=== PATIENT | female | born 1980 | race Caucasian/White ===

== ENCOUNTER 2022-09-10 19:55 | Observation (INO) ==
[2022-09-10] MEDS ORDERED: cefTRIAXone SODIUM 2,000 MG/70 ML BAG IV STA (20:12)
[2022-09-10] MEDS ORDERED: SODIUM CHLORIDE 0.9% 1000ML 1,000 ML IV ONE (20:16)
--- NOTE | 2022-09-10 20:25 | Emergency Department Note ---
History of Present Illness General Chief complaint: Edema To Extremity Stated complaint: SWELLING RIGHT THUMB, URGENT CARE REFERRED Time Seen by Provider: 09/10/22 20:02 Source: patient, RN notes reviewed and old records reviewed Mode of arrival: ambulatory Limitations: no limitations History of Present Illness Maximum Pain Intensity: 8 This patient is a 42-year-old previously healthy right-handed female who comes in after having pain in her right thumb that started this afternoon she is seen in urgent care and referred up here she said since this afternoon she has had red streaks going up her arm all the way to her armpit she has had chills and nausea. She denies any injuries. She has no pets and there is is been no exposure to cats or dogs. 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 No chest pain or shortness of breath. She thinks it started in the pad of the thumb but the thumb is pretty swollen diffusely including the IP joint Home Medications Medication Instructions Recorded Confirmed Type levothyroxine 75 mcg tablet 75 mcg PO DAILY 09/10/22 09/10/22 History (Synthroid) norethindrone 1 mg-ethinyl 1 tab PO DAILY 09/10/22 09/10/22 History estradiol 20 mcg (21)-iron 75 mg (7) tablet (09/09 (28)) Allergies Allergy/AdvReac Type Severity Reaction Status Date / Time No Known Allergies Allergy Verified 09/10/22 20:23 Past Med/Surg History Family History Aunt Breast cancer Denies family history of Ovarian cancer Prostate cancer Myocardial infarction Colorectal cancer Social History Smoking Status: Never smoker Second Hand Exposure: Yes; Hx Alcohol Use: Yes Hx Substance Use: No Preferred Language: Upper Sorbian marital status: Current Living Situation: Spouse How many Children do You have: 2 Feels Safe at Home: Yes Immunizations: Past medical historyhypothyroidism. Denies diabetes denies any inflammatory disease or arthritis. Allergiesdenies any medication allergies Social history she is and lives locally she is a professor in [employer]. Denies tobacco use. Drinks socially with a glass of wine in the evening. Denies drug use. Review of Systems A total of 10 systems reviewed and were otherwise negative Physical Exam Vital Signs Vital Signs - 24 hr 09/10/22 19:59 Temperature 37.7 C H Temperature Source Temporal Artery Scan Pulse Rate 92 H Respiratory Rate 16 Respiratory Depth Normal Blood Pressure 115/72 Blood Pressure Mean 86 Pulse Oximetry 100 Oxygen Delivery Method Room Air Sepsis Recent Fever Within 48 Hours No Sepsis New/Unexplained Change in Mental Status N/A Sepsis Action Taken by Nursing No Action Required General: Well developed well nourished [id number] slender middle-aged female who appears in no acute distress, breathing comfortably on room air. Normal speech HEENT: Normal cephalic atraumatic. Pupils are equal round and reactive to light. Extraocular movements are intact. Oropharynx is pink with moist mucous membranes. No swelling of the mouth lips or tongue. Neck: Supple with a midline trachea. No meningeal signs or stiffness, no JVD or bruits. No Stridor. Chest: Clear to auscultation bilaterally. No wheezes or rhonchi. No increased work of breathing. Heart: Regular rate and rhythm without murmurs or gallops. Abdomen: Soft nontender, nondistended without rebound guarding or rigidity. Extremities: There is moderate swelling and redness throughout her right thumb. She seems tender diffusely including the thumb pad but the IP joint area appears swollen as well. There are red streaks going all way up to her armpit. She has good capillary refill. There is no laceration or obvious break in the skin seen. She is will flex and extend but has a lot of pain when doing so. Spine/Back. Non tender to palpation. No CVA tenderness Skin: Good turgor without rashes. Neurologic exam: Cranial nerves two through 12 are intact. Motor and sensation are intact and symmetrical throughout. Course Administered Medications Discontinued Medications Ceftriaxone Sodium (Rocephin) 2,000 mg in 70 mls @ 140 mls/hr IV NOW STA Stop: 09/10/22 20:41 Last Infusion: 09/10/22 21:15 Dose: 0 mls/hr Documented By: Admin: 09/10/22 20:43 Dose: 140 mls/hr Documented By: [id number] Sodium Chloride (Nss 1000ml) 1,000 mls @ 999 mls/hr IV .Q1H1M ONE Stop: 09/10/22 21:16 Last Admin: 09/10/22 20:41 Dose: 999 mls/hr Documented By: [id number] Ketorolac Tromethamine (Ketorolac Tromethamine 15 Mg/Ml Vial) 10 mg IV NOW ONE Stop: 09/10/22 20:46 Last Admin: 09/10/22 20:49 Dose: 10 mg Documented By: JM Medical Decision Making Differential Diagnosis Cellulitis, lymphangitis, abscess, felon, infected joint, trauma, sepsis, electrolyte or metabolic Medical Records Attestation: I reviewed the patient's medical records. Home Medications Current Medication List: was personally reviewed by me Laboratory Data Attestation: I reviewed the patient's lab results. Result diagrams: 09/10/22 20:33 09/10/22 20:33 Lab Results 09/10/22 09/10/22 09/10/22 Range/Units 20:33 20:33 20:33 WBC 10.88 H (4.8-10.8) K/ul RBC 3.86 L (3.93-5.22) M/uL Hgb 13.2 (12.0-16.0) g/dl Hct 36.7 (34.1-44.9) % MCV 95.1 (80.0-100.0) fL MCH 34.2 H (25.0-34.0) pg MCHC 36.0 (32.0-36.0) g/dL RDW Std Deviation 39.7 (36.4-46.3) fL RDW Coeff of Rosa 11.5 (11.5-14.5) % Plt Count 344 (130-400) K/uL MPV 8.5 L (9.4-12.3) fL Immature Gran % (Auto) 0.4 % Neut % (Auto) 91.0 % Lymph % (Auto) 2.6 % Hinds % (Auto) 5.7 % Eos % (Auto) 0.0 % Baso % (Auto) 0.3 % Neut # (Auto) 9.91 H (1.4-6.5) K/uL Lymph # (Auto) 0.28 L (1.2-3.4) K/uL Hinds # (Auto) 0.62 (0.24-0.82) K/uL Eos # (Auto) 0.00 (0-0.50) K/uL Baso # (Auto) 0.03 (0-0.2) K/uL Immature Gran # (Auto) 0.04 H (0.00-0.02) K/uL Sodium 131 L (136-145) mmol/L Potassium 3.3 L (3.5-5.1) mmol/L Chloride 95 L (98-107) mmol/L Carbon Dioxide 29 (21-32) mmol/L Anion Gap 7 (3-11) BUN 6 (6-23) mg/dl Creatinine 0.61 (0.6-1.2) mg/dl Est Cr Clr Drug Dosing 78.3 ml/min Est GFR ( Amer) 128.7 ml/min Est GFR (Non-Af Amer) 111.0 ml/min BUN/Creatinine Ratio 9.8 L (10-20) Glucose 104 H (70-99(Fasting)) mg/dl Lactate 1.0 (0.4-2.0) mmol/L Calcium 9.5 (8.5-10.1) mg/dl Magnesium 2.1 (1.7-2.4) mg/dl Total Bilirubin 0.5 (0.2-1.0) mg/dl Direct Bilirubin 0.1 (0-0.2) mg/dl AST 26 (13-39) U/L ALT 15 (7-52) U/L Alkaline Phosphatase 44 (34-104) U/L Troponin I High Sens 3.8 (0-14) pg/ml C-Reactive Protein < 0.50 (0-0.5) mg/dl Total Protein 7.2 (6.0-8.3) gm/dl Albumin 4.6 (3.4-5.0) gm/dl Procalcitonin (0-0.5) ng/ml HCG, Qual (Negative) 09/10/22 Range/Units 20:33 WBC (4.8-10.8) K/ul RBC (3.93-5.22) M/uL Hgb (12.0-16.0) g/dl Hct (34.1-44.9) % MCV (80.0-100.0) fL MCH (25.0-34.0) pg MCHC (32.0-36.0) g/dL RDW Std Deviation (36.4-46.3) fL RDW Coeff of Rosa (11.5-14.5) % Plt Count (130-400) K/uL MPV (9.4-12.3) fL Immature Gran % (Auto) % Neut % (Auto) % Lymph % (Auto) % Hinds % (Auto) % Eos % (Auto) % Baso % (Auto) % Neut # (Auto) (1.4-6.5) K/uL Lymph # (Auto) (1.2-3.4) K/uL Hinds # (Auto) (0.24-0.82) K/uL Eos # (Auto) (0-0.50) K/uL Baso # (Auto) (0-0.2) K/uL Immature Gran # (Auto) (0.00-0.02) K/uL Sodium (136-145) mmol/L Potassium (3.5-5.1) mmol/L Chloride (98-107) mmol/L Carbon Dioxide (21-32) mmol/L Anion Gap (3-11) BUN (6-23) mg/dl Creatinine (0.6-1.2) mg/dl Est Cr Clr Drug Dosing ml/min Est GFR ( Amer) ml/min Est GFR (Non-Af Amer) ml/min BUN/Creatinine Ratio (10-20) Glucose (70-99(Fasting)) mg/dl Lactate (0.4-2.0) mmol/L Calcium (8.5-10.1) mg/dl Magnesium (1.7-2.4) mg/dl Total Bilirubin (0.2-1.0) mg/dl Direct Bilirubin (0-0.2) mg/dl AST (13-39) U/L ALT (7-52) U/L Alkaline Phosphatase (34-104) U/L Troponin I High Sens (0-14) pg/ml C-Reactive Protein (0-0.5) mg/dl Total Protein (6.0-8.3) gm/dl Albumin (3.4-5.0) gm/dl Procalcitonin < 0.05 (0-0.5) ng/ml HCG, Qual Negative (Negative) Imaging Data Attestation: I personally reviewed and interpreted this imaging study as follows: My Impression: Right thumb x-rayno fracture or dislocation or any bony abnormality seen. Radiologist's Impression: Finger X-Ray 09/10/22 20:12 XR finger(s) RT min 2V CLINICAL HISTORY: right thumb pain and swelling TECHNIQUE: 3 views of the right first digit were obtained. Comparison: None available at the time of this dictation. FINDINGS: There is no evidence of an acute fracture. Joint spaces are well-preserved. Soft tissue swelling is seen about the digit. IMPRESSION: Soft tissue swelling is seen about the first digit without evidence of acute fracture. ACT 112: Negative or not required by law. Electronically signed by: Vimal Morgan M.D. 09/10/2022 8:54 PM ECG Data Attestation: I personally reviewed and interpreted this ECG as follows: Indication: + other (Sepsis work-up) Rate (beats per minute): 91 Rhythm: + normal sinus ECG Intervals/blocks: + Normal QRS, + Normal QT and + Normal CA ECG Snook: + Normal ECG ST segments: + Normal ST segments ECG Findings: no PACs or no PVCs Comparison ECG Date: no prior available MDM Narrative This patient comes in with pain and swelling in her right thumb. She is tender on the thumb pad but also diffusely and on the dorsal aspect of her thumb as well along the joint. There are also red streaks consistent with lymphangitis. She has had some chills and has a temperature 37.7, I am concerned about sepsis. I did order a full sepsis type work-up IV access established in the opposite arm blood cultures were obtained. She was initially given empiric Rocephin 2 g IV as well as 1 L normal saline bolus IV. Multiple blood testing was obtained. She was also given Toradol 10 mg IV for pain. EKG does not suggest any ischemic changes and she is nontachycardic. No arrhythmia. She seems more comfortable with the Toradol. I did order additional 500 cc normal saline IV bolus which would put her at more than 30 cc/kg IV. White count is mildly elevated 10 however lactic acid procalcitonin and CRP are within normal limits. I do think she needs to be admitted for IV antibiotics and observation given her lymphangitis. She may ultimately need drainage or surgery particular even does not get better. Its possible she could have a Decker as of the pad of the f vandana is swollen but also of the dorsal aspect near the joint and it could be more of a septic joint or more of just a cellulitis. I have consulted the [facility] hospitalist group to see her for these measures and I discussed the case with Dr. Morales as well as the resident. I did also discussed the case with the on-call orthopedist Dr. Cox. He agrees with IV antibiotics and observation in the hospital. He will be seeing her in the hospital as well. Impression & Plan Lymphangitis, Cellulitis, Lab test negative for COVID-19 virus, Not currently , Pain of left thumb Discharge Plan Visit Data Chief Complaint: Edema To Extremity Stated Complaint: SWELLING RIGHT THUMB, URGENT CARE REFERRED ED Provider: Ariel Lowery Discharge Problem: Lymphangitis, Cellulitis, Lab test negative for COVID-19 virus, Not currently , Pain of left thumb Forms Stand Alone Forms: My [facility] Prescriptions Prescriptions: No Action norethindrone-e.estradiol-iron [09/09 (28)] 1 mg-20 mcg (21)/75 mg (7) tablet 1 tab PO DAILY levothyroxine [Synthroid] 75 mcg tablet 75 mcg PO DAILY Referrals Referrals: Geneva Sanchez CRNP [Primary Care Provider] -
[2022-09-10] MEDS ORDERED: KETOROLAC TROMETHAMINE 15 MG/ML VIAL IV ONE ×2 (20:45→22:21)
--- NOTE | 2022-09-10 20:56 | XRay Report ---
XR finger(s) RT min 2V CLINICAL HISTORY: right thumb pain and swelling TECHNIQUE: 3 views of the right first digit were obtained. Comparison: None available at the time of this dictation. FINDINGS: There is no evidence of an acute fracture. Joint spaces are well-preserved. Soft tissue swelling is s een about the digit. IMPRESSION: Soft tissue swelling is seen about the first digit without evidence of acute fracture. ACT 112: Negative or not required by law. Electronically signed by: Vimal Morgan M.D. 09/10/2022 8:54 PM
[2022-09-10 21:06] LABS: Pregnancy Test, Serum Negative (Negative)
[2022-09-10 21:17] LABS: Alanine Aminotransferase 15 U/L (7-52); Albumin Level 4.6 gm/dl (3.4-5.0); Alkaline Phosphatase 44 U/L (34-104); Anion Gap 7 (3-11); Aspartate Aminotransferase 26 U/L (13-39); BUN Creatinine Ratio 9.8 (10-20); Bilirubin Direct 0.1 mg/dl (0-0.2); Bilirubin,Total 0.5 mg/dl (0.2-1.0); Blood Urea Nitrogen 6 mg/dl (6-23); C Reactive Protein < 0.50 mg/dl (0-0.5); Calcium 9.5 mg/dl (8.5-10.1); Carbon Dioxide 29 mmol/L (21-32); Chloride 95 mmol/L (98-107); Creatinine Clr Calc Pharmacy 78.3 ml/min; Est GFR (African American) 128.7 ml/min; Glucose 104 mg/dl (70-99(Fasting)); Magnesium 2.1 mg/dl (1.7-2.4); Potassium 3.3 mmol/L (3.5-5.1); Sodium 131 mmol/L (136-145); Total Protein 7.2 gm/dl (6.0-8.3)
[2022-09-10 21:18] LABS: Hematocrit (blood only) 36.7 % (34.1-44.9); Hemoglobin 13.2 g/dl (12.0-16.0); Mean Corpuscular Hemoglobin 34.2 pg (25.0-34.0); Mean Corpuscular Volume 95.1 fL (80.0-100.0); Mean Platelet Volume 8.5 fL (9.4-12.3); Platelet Count 344 K/uL (130-400); RDW Coefficient of Variation 11.5 % (11.5-14.5); RDW Standard Deviation 39.7 fL (36.4-46.3); Red Blood Count 3.86 M/uL (3.93-5.22); White Blood Count 10.88 K/ul (4.8-10.8)
[2022-09-10 21:19] LABS: Troponin I High Sensitivity 3.8 pg/ml (0-14)
[2022-09-10 21:24] LABS: Procalcitonin < 0.05 ng/ml (0-0.5)
[2022-09-10] MEDS ORDERED: SODIUM CHLORIDE 0.9% 500 ML IV ONE (21:31)
--- NOTE | 2022-09-10 21:51 | History & Physical Report ---
Date of Service September 10, 2022 Assessment & Plan (1) Cellulitis: Plan: 42-year-old woman with history of hypothyroidism on levothyroxine who presents with acute onset pain and swelling in her right thumb, with erythema and pain across right arm. Now admitted for IV antibiotics. Cellulitis -WBC 10.88, afebrile, soft tissue swelling noted on XR, no evidence of purulence or abscess. -Now s/p IV ceftriaxone x2 g, 2L IVF bolus in ED. * Admit to [facility] * Continue IV abx: Ceftriaxone 2 g daily x5 days total (08/25). May convert to p.o. in event of clinical improvement. * IV Toradol 15 mg every 6 hours as needed for pain. May convert to p.o. if patient clinically improves. Hypothyroidism * Levothyroxine 75 mcg p.o. daily Code: Full code Dispo: Med-Surg FEN/GI: NPO DVT Prophylaxis: PT/OT: No Consults: Orthopedics History of Present Illness Primary Care Provider: SRINIVAS Fofana Krista is a 42-year-old woman with history of hypothyroidism on levothyroxine who presents to the ED today with acute progressive pain and swelling in her right thumb and redness and swelling across her forearm and arm that began today at noon. Symptoms later included shaking chills and nausea, at which point she presented to [facility]. She denied recent injuries, has no pets no recent exposure to pets. She has a history of cellulitis in her leg once. In the ED, vitals were within normal limits (37.7 C, HR-92). Labs were notable for a slightly elevated WBC of 10.88, Na of 131, K+ 3.3. X-ray of the finger showed soft tissue swelling in the thumb but no fracture or other abnormalities. She received a dose of IV ceftriaxone 2 g x 1, IV NSS bolus x2 L, and IV Toradol 10 mg x 1 for pain. On admission, she denies recent/frequent outdoor exposure, insect bites, recent cuts or scrapes while handling food. Her nausea is improved, though she continues to admit to chills. Right thumb pain is slightly improved. Allergies Allergy/AdvReac Type Severity Reaction Status Date / Time No Known Allergies Allergy Verified 09/10/22 20:23 Home Medications Medication Instructions Recorded Confirmed Type levothyroxine 75 mcg tablet 75 mcg PO DAILY 09/10/22 09/10/22 History (Synthroid) norethindrone 1 mg-ethinyl 1 tab PO DAILY 09/10/22 09/10/22 History estradiol 20 mcg (21)-iron 75 mg (7) tablet (09/09 (28)) Past Med/Surg History Medical History (Updated 09/11/22 @ 09:06 by Eleazar Cox MD) Cellulitis Family History Aunt Breast cancer Denies family history of Ovarian cancer Prostate cancer Myocardial infarction Colorectal cancer Social History Smoking Status: Never smoker Second Hand Exposure: Yes; Hx Alcohol Use: Yes Alcohol type: wine Hx Substance Use: No Preferred Language: Bahamian Communication Ability: Effective Radio Time Salesperson Required: No Beliefs That Will Affect Care: None marital status: Current Living Situation: Spouse and Family Current Living Situation Comment: Lives at home with and two kids How many Children do You have: 2 Other Information That Helps Us Care for You: No Feels Safe at Home: Yes Safety Concerns: Feels Safe At This Time Assistive Devices: None Review of Systems Review of Systems: All systems reviewed & are unremarkable except as noted in HPI & below Physical Exam Physical Exam: General: Fatigued appearing woman in no acute distress HEENT: PERRLA. Normal conjunctiva, anicteric sclera. Oropharynx normal. Respiratory: Normal respiratory effort, CTABL. Cardiovascular: RRR without murmurs, gallops, or rubs. No edema. MSK/Skin: Right thumb swelling without purulence or fluctuance. Unable to passively flex at MCP and IP joints due to pain. Erythematous streak from flexor surface of the right forearm across the cubital fossa, to the upper arm. Mildly tender to palpation across area of erythema. Full ROM at shoulder and wrist on the right. GI: Soft abdomen with normal bowel sounds heard on auscultation. Nontender x4 quadrants Neuro: Alert and oriented x3. Results & Data Results & Data ([facility]) Vital Signs (Past 12 Hours) Vital Signs Temp Pulse Resp BP Pulse Ox O2 Del Method 09/10/22 19:59 37.7 C H 92 H 16 115/72 100 Room Air Supervising Physician Co-Signing Physician Notes Attending addendum: I have physically seen this patient, have supervised the medical residents activities, and agree with the H&P unless as otherwise noted. Assessment and Plan: Right thumb cellulitis/a sending lymphangitis- Ceftriaxone 2 g IV daily Patient also received a total of 1500 mils from the ED Check MRSA swab Toradol 15 mg IV every 6 hours as needed moderate pain Acetaminophen 650 mg p.o. every 6 hours as needed mild pain or fever Question of secondary to underlying Raynaud's and localized trauma Orthopedic consult called in by ED Raynaud's symptoms- Secondary work-up ordered Hypothyroidism- Continue levothyroxine 75 mcg daily Remaining orders and notations as noted Resident Activity Tracking Resident Involvement: Resident Care Provided Care Provided: Adult Hospital Medicine
[2022-09-10 21:56] LABS: Basophils # (auto) 0.03 K/uL (0-0.2); Basophils % (auto) 0.3 %; Immature Granulocytes # (auto) 0.04 K/uL (0.00-0.02); Immature Granulocytes % (auto) 0.4 %; Lymphocytes # (auto) 0.28 K/uL (1.2-3.4); Lymphocytes % (auto) 2.6 %; Monocytes # (auto) 0.62 K/uL (0.24-0.82); Monocytes % (auto) 5.7 %; Neutrophils # (auto) 9.91 K/uL (1.4-6.5)
[2022-09-11] MEDS ORDERED: ONDANSETRON INJ 2 MG/ML 2 ML VIAL IV PRN (00:03)
[2022-09-11] MEDS ORDERED: ACETAMINOPHEN 500 MG TAB PO PRN (00:03)
[2022-09-11] MEDS ORDERED: LACTATED RINGER'S 1,000 ML IV ONE (00:28)
[2022-09-11 02:27] LABS: Appearance Urine Clear (Clear); Bacteria Urine Automated Negative (Negative); Bilirubin Urine Negative (Negative); Blood Urine 1+ (Negative); Cast Urine Automated 0 /lpf (0-5); Color Urine Yellow; Epithelial Cell Urine Auto 0-5 /lpf (0-5); Glucose Urine UA Negative (Negative); Ketones Urine Negative (Negative); Leukocyte Esterase Urine Negative (Negative); Nitrite Urine Negative (Negative); Protein Urine Negative (Negative); Specific Gravity Urine 1.004 (1.000-1.030); Urobilinogen Urine Negative (Negative); WBC Urine Automated 0 /hpf (0-5); pH Urine 7.5 (4.5-7.5)
[2022-09-11] MEDS: KETOROLAC TROMETHAMINE 15 MG/ML VIAL IV PRN ×3 (02:51→17:28)
[2022-09-11] MEDS: LEVOTHYROXINE SODIUM 75 MCG TABLET PO SCH (06:18)
[2022-09-11 07:05] LABS: Basophils # (auto) 0.05 K/uL (0-0.2); Basophils % (auto) 0.4 %; Eosinophils # (auto) 0.01 K/uL (0-0.50); Eosinophils % (auto) 0.1 %; Hematocrit (blood only) 31.5 % (34.1-44.9); Hemoglobin 11.5 g/dl (12.0-16.0); Immature Granulocytes # (auto) 0.31 K/uL (0.00-0.02); Immature Granulocytes % (auto) 2.7 %; Lymphocytes # (auto) 0.43 K/uL (1.2-3.4); Lymphocytes % (auto) 3.7 %; Mean Corpuscular Hemoglobin 34.5 pg (25.0-34.0); Mean Corpuscular Hgb Conc 36.5 g/dL (32.0-36.0); Mean Corpuscular Volume 94.6 fL (80.0-100.0); Mean Platelet Volume 8.3 fL (9.4-12.3); Monocytes # (auto) 0.59 K/uL (0.24-0.82); Monocytes % (auto) 5.1 %; Neutrophils # (auto) 10.24 K/uL (1.4-6.5); Platelet Count 269 K/uL (130-400); RDW Coefficient of Variation 11.7 % (11.5-14.5); RDW Standard Deviation 40.6 fL (36.4-46.3); Red Blood Count 3.33 M/uL (3.93-5.22); White Blood Count 11.63 K/ul (4.8-10.8)
[2022-09-11 07:35] LABS: Magnesium 1.9 mg/dl (1.7-2.4); Potassium 3.2 mmol/L (3.5-5.1)
--- NOTE | 2022-09-11 07:38 | Hospitalist Progress Note ---
Date of Service September 11, 2022 Assessment & Plan (1) Cellulitis: Plan: 42-year-old woman with history of hypothyroidism on levothyroxine who presents with acute onset pain and swelling in her right thumb, with erythema and pain across right arm. Now admitted for IV antibiotics. Cellulitis -WBC 11.63, afebrile, soft tissue swelling noted on XR, no evidence of purulence or abscess. -Now s/p IV ceftriaxone x2 g, 2L IVF bolus in ED. * Will transition antibiotics to cefazolin * MRI of hand with small less than 1 cm collection questionable for abscess * Orthopedics consulted; discussed with them and will continue with antibiotic treatment. No plan for procedure today. NPO at midnight for re-evaluation in morning. Elevation of RUE. * IV Toradol 15 mg every 6 hours as needed for pain. Hypothyroidism * Levothyroxine 75 mcg p.o. daily Code: Full code FEN/GI: NPO at midnight DVT Prophylaxis: PT/OT: No Consults: Orthopedics Admission and Anticipated Discharge Date Admission Date: September 10, 2022 Supervising Physician Co-Signing Physician Notes I personally examined the patient and verified all whelan points of history and exam, discussed case, and agree with decision making with Dr Villatoro. Hand still hurts a good bit, but feels like it is probably getting a little bit better. Pad of thumb is the most tender. Has a little bit of a headache as well. Notes that she is quite concerned about any unnecessary n.p.o. status given her underweight problemsafter we have a careful and detailed discussion about risk/benefit of n.p.o. after midnight for reevaluation in the morning, and the fact that breakfast would probably then delay any possible surgical drainage (if needed) by a day, but that it is not likely that there will need to be surgical drainageand if so there does not appear to be an emergency pace to itafter weighing all of the risk/benefit, she would prefer to not be n.p.o. until/unless it is clear that a surgery is necessary. Vitals noted, in general she is awake and alert pleasant no distress. HEENT normocephalic atraumatic mucous membranes moist. Osteopathic/musculoskeletal shows a right-sided suboccipitals to be high tone tender decreased range of motioninhibitory pressureimproved, patient tolerated well and noted some improvement in headache. Her right hand is quite swollen, her thumb is a little bit blistered and bruised in addition to erythema, she also has erythema all over the entirety of her hand, predominantly on the extensor surface. The flexor surface of her thumb has a small area of appearance of fluctuance Hand cellulitis, lymphangitis, small abscessin discussion between orthopedics and resident physician, unlikely to need drained. Appreciate orthopedics consideration of having her n.p.o. after midnight until a.m. exam in case drainage is necessary, but patient harbors understandably very significant concerns about being n.p.o. at all if not necessary given her underweight status, and we had a detailed discussion of risk/benefit of the n.p.o. after midnight pending further evaluationshe understands that if it does require surgical drainage that will effectively add more time to her hospital stay, but we also discussed that with the way her hand looks, she is likely to be in the hospital on IV antibiotics at least a few days anyway. Between the fact that she was not extremely ill from a septic shock/severe sepsis standpoint on admission, and her MRSA nares being negativeMSSA coverage with cefazolin likely to be in the range of the best choicecontinue this. Underweight/calorie malnutritionsee above discussion, continue p.o. intake for now. DVT prophylaxisambulation otherwise as above Subjective Kaitlynn is doing well this morning. She state her pain has improved. Has noticed minimal improvement in redness and swelling. Denies fever/chills. Eating and drinking well. Review of Systems Review of Systems: As per above Physical Exam Physical Exam: Constitutional: well-appearing, no acute distress HEENT: NCAT, no conjunctival injection CV: regular rhythm, no murmur appreciated, extremities well-perfused, no LE edema Resp: CTABL, no wheezes/rales/rhonchi appreciated, no increased work of breathing GI: soft, nondistended, nontender, BS normoactive MSK: Right thumb swelling without purulence, fluctuance, break in the skin. Erythematous streak from flexor surface of the right forearm across the cubital fossa, to the upper arm. Mildly tender to palpation across area of erythema. Full ROM at shoulder and wrist on the right. Skin: warm, dry, no rash appreciated Neuro: alert, oriented, no focal neurologic deficit appreciated Results & Data Results & Data ([facility]) Vital Signs (Past 12 Hours) Vital Signs Temp Pulse Pulse Pulse Resp BP BP 09/11/22 00:00 38 C H 86 16 125/82 09/11/22 00:39 37.6 C H 09/11/22 00:10 38 C H 86 16 125/82 09/10/22 23:39 87 16 120/72 09/10/22 23:34 87 16 120/72 09/10/22 23:12 91 H 16 09/10/22 23:00 87 16 99/75 L 09/10/22 19:59 37.7 C H 92 H 16 115/72 Pulse Ox O2 Del Method 09/11/22 00:00 95 Room Air 09/11/22 00:39 09/11/22 00:10 95 Room Air 09/10/22 23:39 99 Room Air 09/10/22 23:34 99 Room Air 09/10/22 23:12 99 Room Air 09/10/22 23:00 99 Room Air 09/10/22 19:59 100 Room Air Resident Activity Tracking Resident Involvement: Resident Care Provided Care Provided: Adult Hospital Medicine
[2022-09-11 07:40] LABS: BUN Creatinine Ratio 10.2 (10-20); Creatinine Clr Calc Pharmacy 92.5 ml/min; Est GFR (African American) 138.3 ml/min; Est GFR (Non-African American) 119.3 ml/min; Phosphorus 3.4 mg/dl (2.5-4.9)
--- NOTE | 2022-09-11 09:10 | Orthopedic Consultation ---
Date of Service September 11, 2022 Assessment & Plan (1) Cellulitis of thumb: 42-year-old female with spontaneous onset thumb pain and swelling due to cellulitis. Very small fluid collection in thumb. Recommend nonoperative treatment. Will continue to follow. Agree with broad-spectrum antibiotics. Recommend soft tissue rest with pillow and elevation. NPO at midnight until am exam. History of Present Illness Reason for Consultation: Right thumb cellulitis Requesting Physician: . Attending Physician: Jim Villaseñor DO 42-year-old female with a history of lower extremity cellulitis in 2007 resolved with antibiotics, presented to the ER yesterday with progressive pain and swelling which started on the thumb. Erythema advanced up her forearm and she had clear evidence of lymphangitis in the ER. She was admitted for cellulitis. Reports slight improvement with overnight antibiotics. Still does not feel well. Pain is as persistent. Erythema is not worsening Allergies Allergy/AdvReac Type Severity Reaction Status Date / Time No Known Allergies Allergy Verified 09/10/22 20:23 Home Medications Medication Instructions Recorded Confirmed Type levothyroxine 75 mcg tablet 75 mcg PO DAILY 09/10/22 09/10/22 History (Synthroid) norethindrone 1 mg-ethinyl 1 tab PO DAILY 09/10/22 09/10/22 History estradiol 20 mcg (21)-iron 75 mg (7) tablet (June09/09 (28)) Past Med/Surg History Medical History (Updated 09/11/22 @ 09:06 by Eleazar Cox MD) Cellulitis Family History Aunt Breast cancer Denies family history of Ovarian cancer Prostate cancer Myocardial infarction Colorectal cancer Social History Smoking Status: Never smoker Second Hand Exposure: Yes; Hx Alcohol Use: Yes Alcohol type: wine Hx Substance Use: No Preferred Language: Tuvaluan Communication Ability: Effective Shipping Helper Required: No Beliefs That Will Affect Care: None marital status: Current Living Situation: Spouse and Family Current Living Situation Comment: Lives at home with and two kids How many Children do You have: 2 Other Information That Helps Us Care for You: No Feels Safe at Home: Yes Safety Concerns: Feels Safe At This Time Assistive Devices: None Review of Systems All systems reviewed & are unremarkable except as noted in HPI & below. Physical Exam Right upper extremity: There is clear erythema and edema involving the distal phalanx of the thumb. There is mild blistering about the radial side of the dorsal IP joint. The IP joint is tender but is diffusely tender along with cellulitic regions. Maintains IP motion but it is guarded. No subungual changes. There is some prominence of the thenar pad though no clear fluctuance or abscess. Erythema begins beyond the distal flexor crease at the IP joint. There is circumferential skin edema extending through the thumb to the dorsum of the hand. Erythema is mild and extends from the thumb through her forearm to the elbow. She is tender to palpation in the antecubital region as well as the axillary region consistent with left meningitis. Neuro vastly intact. Constitutional WD/WN, vitals as above Respiratory normal respiratory effort; no respiratory distress Cardiovascular Extremities: normal capillary refill; no edema Chest (Breasts) Chest: normal inspection of chest Skin no rashes, warm and dry Psychiatric A+Ox3, euthymic affect Results & Data Results & Data Laboratory Results H & H 09/10/22 09/11/22 Range/Units 20:33 06:23 Hgb 13.2 11.5 L (12.0-16.0) g/dl Hct 36.7 31.5 L (34.1-44.9) % WBC slightly elevated and increased from last night. Diagnostic Findings Radiographs show soft tissue edema only. MR Thumb images and radiologist's interpretation reviewed - very small possible abscess ulnar side of proximal phalanx neck. Otherwise, cellulitis. PG Care Time/CCT Total # of Minutes Spent Total Time Spent with Patient: Total time spent is greater than 50% in coordination of care (as documented) at patient's floor/unit and/or counseling patient: Coding Level of Care Code INP/OBS CONSULT LVL 4, 60 MIN Diagnoses Cellulitis of thumb L03.019
--- NOTE | 2022-09-11 10:52 | Electrocardiogram Report ---
Test Reason : Blood Pressure : / mmHG Vent. Rate : 091 BPM Atrial Rate : 091 BPM P-R Int : 118 ms QRS Dur : 084 ms QT Int : 370 ms P-R-T Axes : 082 085 069 degrees QTc Int : 455 ms Normal sinus rhythm Normal ECG No previous ECGs available Confirmed by Russell Mazariegos ([id number]) on 09/11/2022 10:51:59 AM Referred By: REFERRED SELF Confirmed By:Russell Mazariegos
[2022-09-11] MEDS ORDERED: GADOBUTROL 65ML VIAL IV ONE (11:31)
--- NOTE | 2022-09-11 11:55 | Magnetic Resonance Report ---
MR hand RT wo/w con HISTORY: 42 years-old Female R Thumb infection, abscess vs flexor tenosynovitis acute pain and swell ing of the right thumb COMPARISON: Right finger radiographs September 10, 2022 TECHNIQUE: Multiplanar multisequence MRI of the right hand was obtained both with and without the use of Gadavist FINDINGS: Motion degraded exam limits the study, notably evaluation of the ligaments and tendons. The visualize d ligaments and tendons appear intact. No tenosynovitis. Mild subcutaneous and deep tissue edema of t he distal thumb. There is a peripherally enhancing subcutaneous T2 hyperintense focus noted within th e ulnar aspect of the thumb adjacent to the neck of the first proximal phalanx measuring 4 x 3 x 6 mm (image 10 series 13 image 14 series 14). No acute fracture, dislocation, osseous erosion or marrow r eplacing process. Joint spaces appear preserved. IMPRESSION: 1. Motion degraded exam. 2. Subcentimeter peripherally enhancing collection suspicious for an abscess is noted within the thum b. 3. No evidence of tenosynovitis. ACT 112: Negative or not required by law. The above report was generated using voice recognition software. It may contain grammatical, syntax o r spelling errors. Electronically signed by: Theron Denis M.D. 09/11/2022 11:52 AM
[2022-09-11] MEDS: ceFAZolin 2000MG 2,000 MG/15 ML SYR IV SCH ×2 (13:11→19:50)
--- NOTE | 2022-09-11 18:51 | Billing Data ---
Date of Service September 11, 2022 Coding Level of Care Code 48822 SUB INP/OBS CARE MIN
--- NOTE | 2022-09-12 03:03 | Billing Data ---
Date of Service September 12, 2022 Coding Level of Care Code 69787 INT INP/OBS CARE
[2022-09-12] MEDS: ceFAZolin 2000MG 2,000 MG/15 ML SYR IV SCH ×2 (04:19→12:59)
[2022-09-12] MEDS: LEVOTHYROXINE SODIUM 75 MCG TABLET PO SCH (06:01)
[2022-09-12 06:59] LABS: Basophils # (auto) 0.04 K/uL (0-0.2); Basophils % (auto) 0.4 %; Eosinophils # (auto) 0.15 K/uL (0-0.50); Eosinophils % (auto) 1.4 %; Hematocrit (blood only) 29.7 % (34.1-44.9); Hemoglobin 10.8 g/dl (12.0-16.0); Immature Granulocytes % (auto) 0.9 %; Lymphocytes # (auto) 0.44 K/uL (1.2-3.4); Lymphocytes % (auto) 4.1 %; Mean Corpuscular Hemoglobin 34.5 pg (25.0-34.0); Mean Corpuscular Hgb Conc 36.4 g/dL (32.0-36.0); Mean Corpuscular Volume 94.9 fL (80.0-100.0); Mean Platelet Volume 8.4 fL (9.4-12.3); Monocytes # (auto) 0.47 K/uL (0.24-0.82); Monocytes % (auto) 4.3 %; Neutrophils # (auto) 9.65 K/uL (1.4-6.5); Neutrophils % (auto) 88.9 %; Platelet Count 234 K/uL (130-400); RDW Coefficient of Variation 11.8 % (11.5-14.5); RDW Standard Deviation 40.5 fL (36.4-46.3); Red Blood Count 3.13 M/uL (3.93-5.22); White Blood Count 10.85 K/ul (4.8-10.8)
[2022-09-12 07:26] LABS: BUN Creatinine Ratio 13.7 (10-20); Calcium 8.2 mg/dl (8.5-10.1); Creatinine Clr Calc Pharmacy 88.9 ml/min; Est GFR (African American) 136.5 ml/min; Est GFR (Non-African American) 117.8 ml/min
--- NOTE | 2022-09-12 07:30 | Hospitalist Progress Note ---
Date of Service September 12, 2022 Assessment & Plan (1) Cellulitis: Plan: 42-year-old woman with history of hypothyroidism on levothyroxine who presents with acute onset pain and swelling in her right thumb, with erythema and pain across right arm. Now admitted for IV antibiotics. Cellulitis/Lymphangitis - Possible a/w Raynaud Disease, known hx of cellulitis - WBC 10.85 today, afebrile - Soft tissue swelling noted on XR - MRI indicating subcentimeter peripherally enhancing collection suspicious for an abscess is noted within the thumb - Ortho recommending non-surgical management and broad antibiotic coverage, no plan for procedure - Toradol 15 mg q6h PRN for pain - No significant improvement in erythema/edema - Discontinue Cephazolin, start Clindamycin 600 mg q8h Hypothyroidism - Continue Levothyroxine 75 mcg p.o. daily Code: Full code FEN/GI: Vegan DVT Prophylaxis: PT/OT: None Consults: Orthopedics Admission and Anticipated Discharge Date Admission Date: September 10, 2022 Supervising Physician Co-Signing Physician Notes Attending addendum: I have physically seen this patient, have supervised Dr. Mederos and Dr. Morin, and agree with the Assessment and Plan unless as otherwise noted. Assessment and Plan: Taisha Calderón is doing well this morning and was eating breakfast upon arrival. She state her pain continues to improve, but she is uncertain as to whether the swelling/redness is improving. Denies fever/chills. Eating and drinking well. She notes hesitation regarding discharge, but is agreeable to proceed with non- surgical management and antibiotics. Review of Systems Review of Systems: As per above Physical Exam Physical Exam: Constitutional: thin, well-appearing, no acute distress CV: regular rhythm, no murmur appreciated, extremities well-perfused, no LE edema Resp: CTAB, no wheezes/rales/rhonchi appreciated, no increased work of breathing MSK: Right thumb swelling without purulence, fluctuance, break in the skin. Dark, erythematous patch warpping around the right thumb a/w edema and erythema extending into the right palm, dorsal hand, and wrist. Faint erythematous streak from flexor surface of the right forearm across the cubital fossa, to the upper arm. Mildly tender to palpation across area of erythema. Full ROM at shoulder and wrist on the right. No appreciable lymphadenopathy. Neuro: alert, oriented, no focal neurologic deficit appreciated Results & Data Results & Data ([facility]) Vital Signs (Past 12 Hours) Vital Signs Temp Pulse Resp BP Pulse Ox O2 Del Method 09/11/22 22:27 37.4 C 75 16 92/55 L 98 Room Air Laboratory Results Abnormal lab results 09/12/22 09/12/22 Range/Units 06:30 06:30 WBC 10.85 H (4.8-10.8) K/ul RBC 3.13 L (3.93-5.22) M/uL Hgb 10.8 L (12.0-16.0) g/dl Hct 29.7 L (34.1-44.9) % MCH 34.5 H (25.0-34.0) pg MCHC 36.4 H (32.0-36.0) g/dL MPV 8.4 L (9.4-12.3) fL Neut # (Auto) 9.65 H (1.4-6.5) K/uL Lymph # (Auto) 0.44 L (1.2-3.4) K/uL Immature Gran # (Auto) 0.10 H (0.00-0.02) K/uL Sodium 134 L (136-145) mmol/L Potassium 3.0 L (3.5-5.1) mmol/L Creatinine 0.51 L (0.6-1.2) mg/dl Calcium 8.2 L (8.5-10.1) mg/dl Diagnostic Findings Hand MRI 09/11/22 07:22 TECHNIQUE: Multiplanar multisequence MRI of the right hand was obtained both with and without the use of Gadavist FINDINGS: Motion degraded exam limits the study, notably evaluation of the ligaments and tendons. The visualized ligaments and tendons appear intact. No tenosynovitis. Mild subcutaneous and deep tissue edema of the distal thumb. There is a peripherally enhancing subcutaneous T2 hyperintense focus noted within the ulnar aspect of the thumb adjacent to the neck of the first proximal phalanx measuring 4 x 3 x 6 mm (image 10 series 13 image 14 series 14). No acute fracture, dislocation, osseous erosion or marrow replacing process. Joint spaces appear preserved. IMPRESSION: 1. Motion degraded exam. 2. Subcentimeter peripherally enhancing collection suspicious for an abscess is noted within the thumb. 3. No evidence of tenosynovitis. Resident Activity Tracking Resident Involvement: Resident Care Provided Care Provided: Adult [facility]
--- NOTE | 2022-09-12 08:30 | Orthopedic Progress Note ---
Date of Service September 12, 2022 Assessment & Plan (1) Cellulitis of thumb: 42-year-old female with spontaneous onset thumb pain and swelling due to cellulitis. Recommend continuing nonoperative treatment. Will continue to follow. Agree with broad-spectrum antibiotics. Recommend soft tissue rest with pillow and elevation. Subjective Today she reports no nausea, good appetite, and no chills. She is hungry. Frustrated by lack of or delay of breakfast Pain tolerable. Has been elevating pillow. Review of Systems All systems reviewed & are unremarkable except as noted in HPI & below. Physical Exam RUE: And remains with some congestion and erythema focused at the thumb and spreading on the dorsal and palmar sides of the hand. Erythema recedes but there is cellulitic edema to the forearm. Clinically not worse than previous exam yesterday. There is some more blistering on the ulnar side of the thumb, which corresponds to the area of fluid collection on MRI. No obvious areas to decompress, and the skin appears that it would not tolerate incision very well if it were necessary. Constitutional WD/WN, vitals as above no acute distress and not intoxicated appearing Respiratory normal respiratory effort; no labored breathing Cardiovascular Extremities: normal capillary refill Results & Data Results & Data Laboratory Results White blood cell count stable Laboratory Tests 09/10/22 09/11/22 09/12/22 20:33 06:23 06:30 WBC 10.88 H 11.63 H 10.85 H Plt Count 344 269 234 Diagnostic Findings . PG Care Time/CCT Total # of Minutes Spent Total Time Spent with Patient: Total time spent is greater than 50% in coordination of care (as documented) at patient's floor/unit and/or counseling patient: Coding Level of Care Code 95567 SUB INP/OBS CARE 3/50MIN Diagnoses Cellulitis of thumb L03.019
[2022-09-12] MEDS ORDERED: POTASSIUM CHLORIDE CRTAB 20 MEQ TABCR PO ONE ×2 (13:45→20:00)
[2022-09-12] MEDS: CLINDAMYCIN/D5W 600 MG/50 ML BAG IV SCH ×2 (15:46→21:46)
[2022-09-12] MEDS: KETOROLAC TROMETHAMINE 15 MG/ML VIAL IV PRN (19:21)
[2022-09-13] MEDS: LEVOTHYROXINE SODIUM 75 MCG TABLET PO SCH (05:47)
[2022-09-13] MEDS: CLINDAMYCIN/D5W 600 MG/50 ML BAG IV SCH ×2 (05:47→13:46)
--- NOTE | 2022-09-13 07:27 | Hospitalist Progress Note ---
Date of Service September 13, 2022 Assessment & Plan (1) Cellulitis: Plan: 42-year-old woman with history of hypothyroidism on levothyroxine who presents with acute onset pain and swelling in her right thumb, with erythema and pain across right arm. Now admitted for IV antibiotics. Cellulitis/Lymphangitis - Possible a/w Raynaud Disease, known hx of cellulitis - WBC 10.85 today, afebrile - Soft tissue swelling noted on XR - MRI indicating subcentimeter peripherally enhancing collection suspicious for an abscess is noted within the thumb - Ortho recommending non-surgical management and broad antibiotic coverage, no plan for procedure - Toradol 15 mg q6h PRN for pain - No significant improvement in erythema/edema - Discontinue Cephazolin, start Clindamycin 600 mg q8h --- CRP Downtrending, no leukocytosis, afebrile --- Notable evidence of improvement in soft tissue swelling and erythema on exam --- Diminished erythema of ascending lymphangitis Hypothyroidism - Continue Levothyroxine 75 mcg p.o. daily Code: Full code FEN/GI: Vegan DVT Prophylaxis: PT/OT: None Consults: Orthopedics Admission and Anticipated Discharge Date Admission Date: September 10, 2022 Subjective 09/13: 09/12: Kaitlynn is doing well this morning and was eating breakfast upon arrival. She state her pain continues to improve, but she is uncertain as to whether the swelling/redness is improving. Denies fever/chills. Eating and drinking well. She notes hesitation regarding discharge, but is agreeable to proceed with non- surgical management and antibiotics. Review of Systems Review of Systems: As per above Physical Exam Physical Exam: Constitutional: thin, well-appearing, no acute distress CV: regular rhythm, no murmur appreciated, extremities well-perfused, no LE kathy a Resp: CTAB, no wheezes/rales/rhonchi appreciated, no increased work of breathing MSK: Right thumb swelling without purulence, fluctuance, break in the skin. Dark, erythematous patch warpping around the right thumb a/w edema and erythema extending into the right palm, dorsal hand, and wrist. Faint erythematous streak from flexor surface of the right forearm across the cubital fossa, to the upper arm. Mildly tender to palpation across area of erythema. Full ROM at shoulder and wrist on the right. No appreciable lymphadenopathy. Neuro: alert, oriented, no focal neurologic deficit appreciated Results & Data Results & Data ([facility]) Vital Signs (Past 12 Hours) Vital Signs Temp Pulse Resp BP Pulse Ox O2 Del Method 09/12/22 22:33 36.5 C 70 16 99/62 L 98 Room Air
[2022-09-13 08:14] LABS: Basophils # (auto) 0.04 K/uL (0-0.2); Basophils % (auto) 0.5 %; Eosinophils # (auto) 0.28 K/uL (0-0.50); Eosinophils % (auto) 3.4 %; Hemoglobin 10.4 g/dl (12.0-16.0); Immature Granulocytes # (auto) 0.08 K/uL (0.00-0.02); Lymphocytes # (auto) 0.52 K/uL (1.2-3.4); Lymphocytes % (auto) 6.4 %; Mean Corpuscular Hemoglobin 34.2 pg (25.0-34.0); Mean Corpuscular Hgb Conc 35.9 g/dL (32.0-36.0); Mean Corpuscular Volume 95.4 fL (80.0-100.0); Mean Platelet Volume 8.4 fL (9.4-12.3); Monocytes # (auto) 0.53 K/uL (0.24-0.82); Monocytes % (auto) 6.5 %; Neutrophils # (auto) 6.72 K/uL (1.4-6.5); Neutrophils % (auto) 82.2 %; Platelet Count 216 K/uL (130-400); RDW Coefficient of Variation 11.4 % (11.5-14.5); Red Blood Count 3.04 M/uL (3.93-5.22); White Blood Count 8.17 K/ul (4.8-10.8)
[2022-09-13 08:38] LABS: C Reactive Protein 11.79 mg/dl (0-0.5); Calcium 8.3 mg/dl (8.5-10.1); Creatinine Clr Calc Pharmacy 96.5 ml/min; Est GFR (African American) 140.2 ml/min; Potassium 3.6 mmol/L (3.5-5.1)
--- NOTE | 2022-09-13 10:15 | Discharge Summary ---
Date of Service September 13, 2022 Admission HPI Per Admitting Provider Krista is a 42-year-old woman with history of hypothyroidism on levothyroxine who presents to the ED today with acute progressive pain and swelling in her right thumb and redness and swelling across her forearm and arm that began today at noon. Symptoms later included shaking chills and nausea, at which point she presented to [facility]. She denied recent injuries, has no pets no recent exposure to pets. She has a history of cellulitis in her leg once. In the ED, vitals were within normal limits (37.7 C, HR-92). Labs were notable for a slightly elevated WBC of 10.88, Na of 131, K+ 3.3. X-ray of the finger showed soft tissue swelling in the thumb but no fracture or other abnormalities. She received a dose of IV ceftriaxone 2 g x 1, IV NSS bolus x2 L, and IV Toradol 10 mg x 1 for pain. On admission, she denies recent/frequent outdoor exposure, insect bites, recent cuts or scrapes while handling food. Her nausea is improved, though she continues to admit to chills. Right thumb pain is slightly improved. Admission Exam Per Admitting Provider General: Fatigued appearing woman in no acute distress HEENT: PERRLA. Normal conjunctiva, anicteric sclera. Oropharynx normal. Respiratory: Normal respiratory effort, CTABL. Cardiovascular: RRR without murmurs, gallops, or rubs. No edema. MSK/Skin: Right thumb swelling without purulence or fluctuance. Unable to passively flex at MCP and IP joints due to pain. Erythematous streak from flexor surface of the right forearm across the cubital fossa, to the upper arm. Mildly tender to palpation across area of erythema. Full ROM at shoulder and wrist on the right. GI: Soft abdomen with normal bowel sounds heard on auscultation. Nontender x4 quadrants Neuro: Alert and oriented x3. Principal Diagnosis Cellulitis/Ascending Lymphangitis Discharge Exam Constitutional: thin, well-appearing, no acute distress CV: regular rhythm, no murmur appreciated, extremities well-perfused, no LE edema Resp: CTAB, no wheezes/rales/rhonchi appreciated, no increased work of breathing MSK: Improvement of right thumb swelling without purulence, fluctuance, break in the skin. Dark, erythematous patch warpping around the right thumb a/w edema and erythema extending into the right palm, dorsal hand, and wrist. Significant improvement of erythema and edema of hand. Faint erythematous streak from flexor surface of the right forearm across the cubital fossa, to the upper arm, improving. Mildly tender to palpation across area of erythema. Full ROM at shoulder and wrist on the right. No appreciable lymphadenopathy. Neuro: alert, oriented, no focal neurologic deficit appreciated Discharge Data Allergies Allergy/AdvReac Type Severity Reaction Status Date / Time No Known Allergies Allergy Verified 09/10/22 20:23 Consultations 09/10/22 21:45 ED Decision to Admit Stat 09/10/22 23:09 Consult Orthopedic Surgery Routine Ordered Studies 09/11/22 07:22 MRI Hand [MR hand RT wo/w con] Urgent Hospital Course (1) Cellulitis: (2) Cellulitis of thumb: (3) Lymphangitis: Plan 42-year-old woman with history of hypothyroidism on levothyroxine who presents with acute onset pain and swelling in her right thumb, with erythema and pain across right arm. Now admitted for IV antibiotics. Cellulitis/Lymphangitis - Possible a/w Raynaud Disease, known hx of cellulitis - WBC 10.85 today, afebrile - Soft tissue swelling noted on XR - MRI indicating subcentimeter peripherally enhancing collection suspicious for an abscess is noted within the thumb - Ortho recommending non-surgical management and broad antibiotic coverage, no plan for procedure - Toradol 15 mg q6h PRN for pain - No significant improvement in erythema/edema - Discontinue Cephazolin, start Clindamycin 600 mg q8h --- CRP Downtrending, no leukocytosis, afebrile --- Notable evidence of improvement in soft tissue swelling and erythema on exam --- Diminished erythema of ascending lymphangitis --- Plan for discharge on Clindamycin 450 mg PO TID Hypothyroidism - Continue Levothyroxine 75 mcg p.o. daily Code: Full code FEN/GI: Vegan DVT Prophylaxis: PT/OT: None Consults: Orthopedics Total Time Total Time Spent Total Time Spent (In Minutes): see attending attestation Discharge Plan Discharge Items Patient Disposition: Home - Self-Care Reason For Visit: SWELLING RIGHT THUMB, URGENT CARE REFERRED Discharge Diagnosis: Cellulitis/Ascending Lymphangitis Condition on Discharge: Good Activity: Per Instructions section Non-emergency contact: Primary Care Provider Call non-emergency contact if: you have any medication questions, your symptoms worsen, your pain is not controlled, your temperature is above 101.5 and your wound has increased drainage Follow-up/Referrals: Geneva Sanchez CRNP [Primary Care Provider] - 09/19/22 3:35 pm (APPT WITH SRINIV[facility] DUMONT) Diet: Regular Addtl Attending Provider Instructions: You were admitted to the hospital for Cellulitis (skin infection) w/ associated Lymphangitis (infection traveling in your lymphatic system). You were treated with antibiotics while you were in the hospital and evaluated by our orthopedic team. Imaging of your thumb indicated a small abscess, but it was not large enough to require surgical drainage. You responded well to Clindamycin via IV, so we will sent you home with Clindamycin to take by mouth. I recommend increasing your consumption of probiotics during the next few weeks to protect your gut, you could either add probiotics or increase the amount of yogurt, kimchi, kefir, or fermented foods with healthy bacteria that you consume. This will help protect your gut from developing a clostridium difficile infection. If you do develop loose, foul smelling stools w/ abdominal cramping, please contact your family physician and discuss your new symptoms and recent antibiotic use. A discharge summary will be sent to your primary care physician to ensure continuity of care. Please bring this discharge summary with you to your next office appointment so that your provider can review it at that time. Follow-up appointments: - Make a follow-up appointment with your PCP within the next week. It is very important that you follow up with them shortly after discharge from the hospital. We have requested a follow-up appointment with your primary care physician within one week of discharge. Please call their office if you do not hear from them. Medications: - Your medication list has been reviewed and reconciled upon discharge to ensure accuracy and continuity of care. An updated list of all your medications is included with your hospital discharge paperwork. Please review this list closely, and make note of any changes. - We sent a new medication called Clindamycin. Please take 450 mg by mouth three times a day for 8 more days (total of 10 days) - Take your medications as instructed; do not skip a dose of your medicines. Make sure all of your doctors know every medicine you are taking (including [id number] medicines, vitamins, and supplements). Contact your Primary Care Provider if you experience: - Worsening swelling or redness - Difficulty following your treatment plan or taking medications Call 911 or go to the emergency department if you experience: - Sudden, severe abdominal pain or nausea/vomiting - Severe chest pain, or chest pain that radiates (moves) to your jaw or arm - Sudden, severe shortness of breath or difficulty breathing It was a pleasure to be a part of your care, Dr. Nisreen Mederos Pending Studies at Discharge: No Stand-Alone Forms: My [facility], Smoking Cessation Medications and DC Order Prescriptions: New clindamycin HCl 300 mg capsule 450 mg PO TID 8 Days Qty: 36 0RF Rx Instructions: Intended 10 day course, received 2 days inpatient. Take with food. Encourage increased probiotic intake. Continued norethindrone-e.estradiol-iron [June FE 09/09 (28)] 1 mg-20 mcg (21)/75 mg (7) tablet 1 tab PO DAILY levothyroxine [Synthroid] 75 mcg tablet 75 mcg PO DAILY Discharge Orders: Discharge Order (Routine); Ordered 09/13/22 Ordered By: Nisreen Thibodeaux/Other Patient Handouts: Cellulitis Dc Admission Data Admit Date/Time: 09/10/22 22:40 Attending Provider: Tyrell Delacruz Admit Provider: Mayank Perez Primary Care Provider: Geneva Sanchez Other Providers: Eleazar Cox ; Alina Soriano ; Eber Key ; Lien Sanon ; Russell Fung ; Petty Curry ; Sowmya Neal ; Bell Leavitt ; Kumar Peck ; Roger Davenport ; Erick Brooke ; Ariel Beebe ; Ariel Christian ; Mayank Perez Other Interventions: Discharge Summary Assessment (RN) Last Done: 09/13/22 11:58 Supervising Physician Co-Signing Physician Notes I saw and examined the patient and discussed case with medical student/medical office rep. I agree with the Discharge summary as documented.
== END 2022-09-13 15:33 | disposition home or self-care (01) ==
LOC: ED 19:55 → 3W 22:40 → SUATTDRO 22:40 → INTOOBSV 22:40 → 3W 23:39